=== PATIENT | male | born 1960 ===

== ENCOUNTER 2021-02-25 11:20 | Inpatient (IN) ==
[2021-02-25 11:40] LABS: ABS Basophils 0.1 10^3/ul (0-0.2); ABS Lymphocytes 1.3 10^3/ul (1.0-4.8); ABS Monocytes 0.9 10^3/ul (0-0.8); ABS Neutrophils 8.7 10^3/ul (1.5-7.7); Eosinophil % 0.2 %; Hematocrit 45 % (42-52); Lymphocyte % 11.7 %; Mean Corpuscular HGB Conc 34 g/dL (31-36); Mean Corpuscular Hemoglobin 31 pg (27-31); Mean Corpuscular Volume 92 fL (80-94); Mean Platelet Volume 8.1 fL (7.4-10.4); Nucleated Red Blood Cells % 0.1; Platelet Count 218 10^3/uL (150-450); Red Blood Count 4.85 10^6 /uL (4.18-5.48); Red Cell Distribution Width 15 % (10-15)
[2021-02-25 12:07] LABS: Albumin 3.9 g/dL (3.2-5.2); Albumin/Globulin Ratio 1.2 (1-3); Globulin 3.3 g/dL (2-4); Potassium 4.4 mmol/L (3.5-5.0); Total Bilirubin 2.1 mg/dL (0.2-1.0); Total Protein 7.2 g/dL (6.4-8.9); eGFR CKD-EPI 112.1 (>60)
[2021-02-25] MEDS ORDERED: Morphine 2 MG/ML SYRINGE ONE (12:19)
[2021-02-25 13:37] LABS: Rapid COVID-19 Molecular Undetected (Undetected)
[2021-02-25] MEDS ORDERED: NS 0.9% 1000 ml BAG 1,000 ML IV SCH (14:45)
[2021-02-25] MEDS ORDERED: Prochlorperazine 5 mg/ml 2 ml VIAL (10 mg) IV PRN (14:49)
[2021-02-25] MEDS ORDERED: Morphine 2 MG/ML SYRINGE IV PRN (14:55)
[2021-02-25] MEDS: Nicotine PATCH 14 MG/24 HR PATCH TRANSDERM SCH (16:04)
[2021-02-25] MEDS: Enoxaparin 40 MG/0.4 ML SYR SUBCUT SCH (16:05)
[2021-02-25] MEDS: D5NS 0.9% 1000 ml BAG 1,000 ML IV SCH (17:47)
[2021-02-25] MEDS ORDERED: Iohexol 300 (CONTRAST) 10 ML SDV IV ONE (18:53)
[2021-02-25] MEDS ORDERED: Gadoteridol (CONTRAST) 279.3 MG/ML 10 ML IV ONE (20:01)
[2021-02-25] MEDS: Famotidine IV 10 MG/ML 2 ml VIAL (20 mg) IV SLOW PU SCH (22:14)
[2021-02-26] MEDS: Nicotine PATCH 14 MG/24 HR PATCH TRANSDERM SCH (09:33)
[2021-02-26] MEDS: Famotidine IV 10 MG/ML 2 ml VIAL (20 mg) IV SLOW PU SCH ×2 (09:33→21:53)
[2021-02-26] MEDS: D5NS 0.9% 1000 ml BAG 1,000 ML IV SCH ×2 (09:33→18:39)
[2021-02-26] MEDS ORDERED: Dexamethasone IV 4 MG in NS 0.9% 50 ML 50 ML IVPB SCH (11:00)
[2021-02-26] MEDS ORDERED: Dexamethasone IV 4 MG/ML VIAL 1 ml VIAL IV SLOW PU SCH (11:30)
[2021-02-26] MEDS: Morphine 10 MG/ML VIAL (1 ml) IV PRN ×2 (11:41→18:34)
[2021-02-26] MEDS ORDERED: Iohexol 300 (CONTRAST) 10 ML SDV IV ONE (13:41)
[2021-02-26] MEDS: Enoxaparin 40 MG/0.4 ML SYR SUBCUT SCH (15:05)
[2021-02-26] MEDS: Dexamethasone IV 4 MG/ML VIAL 1 ml VIAL IV SLOW PU SCH ×2 (18:34→23:00)
[2021-02-27 06:10] LABS: ABS Lymphocytes 0.6 10^3/ul (1.0-4.8); ABS Monocytes 0.3 10^3/ul (0-0.8); ABS Neutrophils 2.7 10^3/ul (1.5-7.7); Hematocrit 39 % (42-52); Hemoglobin 13.1 g/dL (14.0-18.0); Lymphocyte % 15.4 %; Mean Corpuscular HGB Conc 34 g/dL (31-36); Mean Corpuscular Hemoglobin 31 pg (27-31); Mean Corpuscular Volume 92 fL (80-94); Mean Platelet Volume 8.3 fL (7.4-10.4); Nucleated Red Blood Cells % 0.2; Platelet Count 128 10^3/uL (150-450); Red Cell Distribution Width 14 % (10-15); White Blood Count 3.6 10^3/uL (3.5-10.8)
[2021-02-27] MEDS: Dexamethasone IV 4 MG/ML VIAL 1 ml VIAL IV SLOW PU SCH ×3 (06:19→17:58)
[2021-02-27 06:43] LABS: Albumin 3.2 g/dL (3.2-5.2); Albumin/Globulin Ratio 1.2 (1-3); Calcium 8.9 mg/dL (8.6-10.3); Globulin 2.6 g/dL (2-4); Potassium 4.1 mmol/L (3.5-5.0); Total Bilirubin 1.4 mg/dL (0.2-1.0); Total Protein 5.8 g/dL (6.4-8.9); eGFR CKD-EPI 120.6 (>60)
[2021-02-27 06:59] LABS: PSA Screening Total 0.124 ng/mL (0-4.000)
[2021-02-27] MEDS: Nicotine PATCH 14 MG/24 HR PATCH TRANSDERM SCH (08:39)
[2021-02-27] MEDS: Famotidine IV 10 MG/ML 2 ml VIAL (20 mg) IV SLOW PU SCH ×2 (08:39→21:25)
[2021-02-27] MEDS: Morphine 10 MG/ML VIAL (1 ml) IV PRN (11:45)
[2021-02-27] MEDS: D5NS 0.9% 1000 ml BAG 1,000 ML IV SCH (11:45)
[2021-02-27 15:30] VITALS: BP 100/55
[2021-02-27] MEDS: Enoxaparin 40 MG/0.4 ML SYR SUBCUT SCH (15:31)
[2021-02-27] MEDS ORDERED: Ondansetron ODT 4 mg TAB 4 MG TAB SL PRN (16:22)
[2021-02-27] MEDS: Morphine ORAL CONCENTRATE 5 MG/0.25 ML ORAL.SYRIN SL PRN ×3 (17:58→23:03)
[2021-02-28] MEDS: Dexamethasone IV 4 MG/ML VIAL 1 ml VIAL IV SLOW PU SCH ×3 (00:04→11:58)
[2021-02-28] MEDS: Nicotine PATCH 14 MG/24 HR PATCH TRANSDERM SCH (09:03)
[2021-02-28] MEDS: Famotidine IV 10 MG/ML 2 ml VIAL (20 mg) IV SLOW PU SCH (09:05)
[2021-02-28] MEDS: Morphine ORAL CONCENTRATE 5 MG/0.25 ML ORAL.SYRIN SL PRN ×2 (09:13→11:57)
== END 2021-02-28 12:10 | disposition home or self-care (01) | DRG 281 ==
LOC: CHOA 11:20 → MEDTELE 14:41
PROVIDERS: ADMIT Internal Medicine Medical Oncology; ATTEND Internal Medicine Medical Oncology